=== PATIENT | female | born 1965 | race Two or more races ===

== ENCOUNTER 2021-08-08 11:31 | Emergency (ER) | payer MEDICARE, OTHER ==
[~2021-08-08] VITALS: Ht 154.9 cm; Wt 56.4 kg
[2021-08-08] MEDS ORDERED: HYDROCODONE/ACETAMINOPHEN 10-325 MG TABLET PO ONE (13:00)
[2021-08-08] MEDS ORDERED: LIDOCAINE 5% TRANSDERMAL PATCH TD ONE (14:15)
[2021-08-08 14:35] VITALS: BP 136/77
[2021-08-08] MEDS ORDERED: IBUP-2077 PO (14:47)
[2021-08-08] MEDS ORDERED: LIDO1ADH63 TP (14:48)
== END 2021-08-08 15:10 | disposition home or self-care (01) ==
LOC: EMS 11:31
DX: S22.32XA Fracture of one rib, left side, initial encounter for closed fracture (principal); E11.9 Type 2 diabetes mellitus without complications; E78.00 Pure hypercholesterolemia, unspecified; F17.210 Nicotine dependence, cigarettes, uncomplicated; Z90.710 Acquired absence of both cervix and uterus; Z90.89 Acquired absence of other organs; X58.XXXA Exposure to other specified factors, initial encounter; Y93.89 Activity, other specified; Y92.89 Other specified places as the place of occurrence of the external cause; Y99.8 Other external cause status
CPT/HCPCS: 71101; 82962; 93005; 99283

== ENCOUNTER 2021-12-25 14:11 | Emergency (ER) | payer MEDICARE, OTHER ==
[~2021-12-25] VITALS: Ht 154.9 cm; Wt 61.4 kg
[~2021-12-25 14:11] MED LIST: IBUP-2077 PO; LIDO1ADH63 TP
[2021-12-25] MEDS ORDERED: LEVO25TA9 PO (14:23)
[2021-12-25] MEDS ORDERED: ATOR10TA84 PO (14:23)
[2021-12-25] MEDS ORDERED: CLOP75TA60 PO (14:23)
[2021-12-25] MEDS ORDERED: HYDROCODONE/ACETAMINOPHEN 5-325 MG TABLET PO ONE (15:00)
[2021-12-25] MEDS ORDERED: GABAPENTIN 300 MG CAPSULE PO ONE (15:00)
[2021-12-25] MEDS ORDERED: KETOROLAC TROMETHAMINE 30 MG/ML VIAL IM ONE (15:00)
[2021-12-25] MEDS ORDERED: CYCL-448 PO (17:59)
[2021-12-25] MEDS ORDERED: METH4TAB3 PO (17:59)
[2021-12-25] MEDS ORDERED: GABA-1181 PO (17:59)
[2021-12-25 18:15] VITALS: BP 125/68
== END 2021-12-25 18:48 | disposition home or self-care (01) ==
LOC: EMS 14:13
DX: S39.012A Strain of muscle, fascia and tendon of lower back, initial encounter (principal); E11.9 Type 2 diabetes mellitus without complications; E78.00 Pure hypercholesterolemia, unspecified; E03.9 Hypothyroidism, unspecified; F17.210 Nicotine dependence, cigarettes, uncomplicated; Z86.73 Personal history of transient ischemic attack (TIA), and cerebral infarction without residual deficits; Z90.49 Acquired absence of other specified parts of digestive tract; Z90.710 Acquired absence of both cervix and uterus; Z98.890 Other specified postprocedural states; X50.0XXA Overexertion from strenuous movement or load, initial encounter; Y93.89 Activity, other specified; Y92.89 Other specified places as the place of occurrence of the external cause; Y99.8 Other external cause status
CPT/HCPCS: 99284; 72131; 72070; 96372; J1885